=== PATIENT | female | born 1955 ===

== ENCOUNTER 2018-04-16 17:30 | Emergency (ER) | payer MEDICARE, OTHER ==
[2018-04-16 17:31] VITALS: BMI 26.6
--- NOTE | 2018-04-16 18:02 | ED PDOC ---
HPI: Abdomen Time Seen by Provider: 04/16/18 17:43 Chief Complaint (Nursing): Dizziness/Lightheaded History Per: Patient (Epigastric pain assoc with nausea and diarrhea x3 days. Denies fever or bloody stools.. Also c/o dizziness. Has travelled to [facility] recently and ran out of her BP meds. Also c/o headache.) Onset/Duration Of Symptoms: Days (3) Current Symptoms Are (Timing): Still Present Severity: Moderate Location Of Pain/Discomfort: Epigastric Quality Of Discomfort: Unable To Describe Associated Symptoms: Nausea, Diarrhea Exacerbating Factors: None Alleviating Factors: None Past Medical History Vital Signs: Last Vital Signs Temp 99.2 F 04/16/18 17:35 Pulse 83 04/16/18 17:35 Resp 16 04/16/18 17:35 BP 137/84 04/16/18 17:35 Pulse Ox 95 04/16/18 18:39 - Medical History PMH: HTN, Hypercholesterolemia - Family History Family History: States: Unknown Family Hx - Home Medications Home Medications: Ambulatory Orders Medication Instructions Recorded Meclizine [Meclizine*] 25 mg PO Q6 PRN #20 tab 10/15/14 Naproxen [Naprosyn Tab] 500 mg PO BID PRN #20 tab 10/15/14 Ciprofloxacin HCl [Cipro] 500 mg PO BID #9 tab 01/19/15 - Allergies Allergies/Adverse Reactions: Allergies Allergy/AdvReac Type Severity Reaction Status Date / Time No Known Allergies Allergy Verified 01/19/15 03:45 Review of Systems ROS Statement: Except As Marked, All Systems Reviewed And Found Negative Gastrointestinal: Positive for: Nausea, Abdominal Pain, Diarrhea Neurological: Positive for: Headache, Dizziness Physical Exam - Reviewed Nursing Documentation Reviewed: Yes Vital Signs Reviewed: Yes - Physical Exam Appears: Positive for: Non-toxic, No Acute Distress Head Exam: Positive for: ATRAUMATIC, NORMAL INSPECTION, NORMOCEPHALIC Skin: Positive for: Normal Color, Warm, DRY Eye Exam: Positive for: EOMI, Normal appearance, PERRL ENT: Positive for: Normal ENT Inspection Neck: Positive for: Normal, Painless ROM Cardiovascular/Chest: Positive for: Regular Rate, Rhythm Respiratory: Positive for: CNT, Normal Breath Sounds Gastrointestinal/Abdominal: Positive for: Soft, Tenderness Back: Positive for: Normal Inspection Extremity: Positive for: Normal ROM Neurologic/Psych: Positive for: Alert, Oriented. Negative for: Motor/Sensory Deficits - Laboratory Results Result Diagrams: 04/16/18 18:11 04/16/18 18:11 - ECG ECG Rhythm: Positive for: Sinus Rhythm, Nonspecific Changes (No changes compared to EKG 10/2014) O2 Sat by Pulse Oximetry: 95 Disposition - Clinical Impression Clinical Impression: Dizziness - Patient ED Disposition Is Patient to be Admitted: Transfer of Care - Disposition Disposition: Transfer of Care Disposition Time: 19:02 Condition: FAIR Forms: [employer] (Somali) Patient Signed Over To: David Underwood
[2018-04-16 18:34] LABS: BASO % 0.3 % (0.0-2.0); EOS % 0.3 % (0.0-4.0); HEMOGLOBIN 14.6 g/dL (12.0-16.0); LYMPH % 10.1 % (20.0-40.0); MEAN CELL VOLUME 92.3 fl (81.0-99.0); MEAN CORPUSCULAR HEMOGLOBIN 31.4 pg (27.0-31.0); MEAN PLATELET VOLUME 10.6 fl (7.2-11.7); MONO # 0.7 K/uL (0.0-0.8); MONO % 6.8 % (0.0-10.0); NEUT % 82.5 % (50.0-75.0); NRBC % 0.1 % (0.0-0.0); RBC 4.64 Mil/uL (3.80-5.20); RED CELL DISTRIBUTION WIDTH 13.5 % (11.5-14.5); WHITE BLOOD COUNT 9.7 K/uL (4.8-10.8)
[2018-04-16 18:37] LABS: ALB/GLOB RATIO 1.2 (1.0-2.1); ALBUMIN 4.4 g/dL (3.5-5.0); ALT/SGPT 70 U/L (9-52); AST/SGOT 56 U/L (14-36); BLOOD UREA NITROGEN 16 mg/dl (7-17); CALCIUM 9.6 mg/dL (8.4-10.2); GFR AFRICAN-AMERICAN > 60; GFR NON-AFRICAN AMERICAN > 60
[2018-04-16] MEDS: Sodium Chloride 0.9% 1,000 ML IV STA (18:47)
--- NOTE | 2018-04-16 19:28 | ED PDOC ---
- Laboratory Results Result Diagrams: 04/16/18 18:11 04/16/18 18:11 - ECG O2 Sat by Pulse Oximetry: 95 (RA) Pulse Ox Interpretation: Normal Medical Decision Making Medical Decision Making: Patient endorsed to me @[address] Gandhi, pending labs and workup. Patient reports that pain is now gone. On exam, abdomen is soft and non tender. Reviewed blood work with patient and found LFTs were slightly elevated. Patient advised to follow up with primary care physician in 1-2 days without fail. Patient to be diagnosed with gastritis and gastroenteritis. Scribe Attestation: Documented by Adriel Tavarez, acting as a scribe for Dr. David Underwood MD. Provider Scribe Attestation: All medical record entries made by the Scribe were at my direction and personally dictated by me. I have reviewed the chart and agree that the record accurately reflects my personal performance of the medical decision making and the department course for this patient. I have also personally directed, reviewed, and agree with the discharge instructions and disposition. Disposition Counseled Patient/Family Regarding: Studies Performed, Diagnosis, Need For Followup - Clinical Impression Clinical Impression: Gastritis, Gastroenteritis - POA Present On Arrival: None - Disposition Referrals: [facility] [Outside] [facility] [Outside] Disposition: Routine/Home Disposition Time: 20:45 Condition: IMPROVED Additional Instructions: follow up with your primary doctor in 3 days return to the ED with any worsening or concerning symptoms Prescriptions: Famotidine [Pepcid] 20 mg PO BID PRN #10 tab PRN Reason: Heartburn Instructions: Gastritis, Gastroenteritis (ED) Forms: [employer] (Romanian) Print Language: YAKUT
[2018-04-16 19:32] VITALS: TEMP 98.1
[2018-04-16 21:05] VITALS: BP 136/66; PULSE 72; RESP 16
[2018-04-17 03:57] VITALS: O2SAT 95
--- NOTE | 2018-04-17 16:23 | CARD ---
APPROVED REPORT EKG Measurement Heart [id number] <Conclusion> Normal sinus rhythm Voltage criteria for left ventricular hypertrophy ST & T wave abnormality, consider anterolateral ischemia Abnormal ECG
== END 2018-04-16 21:05 | disposition home or self-care (01) ==
LOC: H.ER 17:30
DX: K52.9 Noninfective gastroenteritis and colitis, unspecified (principal); K29.70 Gastritis, unspecified, without bleeding
CPT/HCPCS: 80053; 82948; 84484; 85025; 93005; 99285; J7030